=== PATIENT | female | born 1950 | race Asian ===

== ENCOUNTER 2017-07-07 07:10 | Day surgery (SDC) | payer MEDICAID ==
[~2017-07-07] VITALS: Ht 162.6 cm; Wt 63.2 kg
[~2017-07-07 07:10] MED LIST: ACETAMINOPHEN/CODEINE 300-30 MG TABLET PO PRN; TETRACAINE HCL/PF 0.5% 4 ML OPHTHALMIC SOLUTION OS ONE
[2017-07-07] MEDS ORDERED: HYALURONATE SOD/CHONDROITIN SOD 0.5 ML VIAL IO ONE (07:11)
[2017-07-07] MEDS ORDERED: EPINEPHrine 1:1,000 [1 MG/ML] AMP IM ONE (07:11)
[2017-07-07] MEDS ORDERED: MIDAZOLAM HCL 2 MG/2 ML VIAL IVP ONE (07:11)
[2017-07-07] MEDS ORDERED: HYALURONATE SODIUM 12 MG/ML 0.8 ML SYRINGE IO ONE (07:11)
[2017-07-07] MEDS ORDERED: FentaNYL CITRATE-PF 100 MCG/2 ML VIAL IVP ONE (07:11)
[2017-07-07] MEDS ORDERED: BRIMONIDINE TARTRATE 0.15% 5 ML OPHTHALMIC SOLUTION OS ONE (07:11)
[2017-07-07] MEDS ORDERED: TETRACAINE HCL VISCOUS 0.5% 5 ML OPHTHALMIC SOLUTION OD ONE (07:11)
[2017-07-07] MEDS ORDERED: POVIDONE-IODINE 10% 15 ML SOLUTION UD TP ONE (07:11)
[2017-07-07] MEDS ORDERED: LIDOCAINE HCL/PF 1% 2 ML VIAL IM ONE (07:11)
[2017-07-07] MEDS ORDERED: RINGERS SOLUTION,LACTATED 500 ML IV ONE ×2 (07:19→07:30)
[2017-07-07] MEDS ORDERED: CYCLOPENTOLATE HCL 2% 2 ML OPHTHALMIC SOLUTION ONE (07:20)
[2017-07-07] MEDS ORDERED: PHENYLEPHRINE HCL 2.5% 2 ML OPHTHALMIC SOLUTION ONE (07:20)
[2017-07-07] MEDS ORDERED: MOXIFLOXACIN HCL 0.5% 3 ML OPHTHALMIC SOLUTION ONE (07:20)
[2017-07-07] MEDS ORDERED: DICLOFENAC SODIUM 0.1% 2.5 ML OPHTHALMIC SOLUTION ONE (07:20)
[2017-07-07] MEDS ORDERED: TETRACAINE HCL/PF 0.5% 4 ML OPHTHALMIC SOLUTION ONE (07:20)
[2017-07-07] MEDS: PHENYLEPHRINE HCL 2.5% 2 ML OPHTHALMIC SOLUTION OS SCH ×3 (07:53→08:04)
[2017-07-07] MEDS: MOXIFLOXACIN HCL 0.5% 3 ML OPHTHALMIC SOLUTION OS SCH ×3 (07:54→08:16)
[2017-07-07] MEDS: CYCLOPENTOLATE HCL 2% 2 ML OPHTHALMIC SOLUTION OS SCH ×3 (07:54→08:04)
[2017-07-07] MEDS: DICLOFENAC SODIUM 0.1% 2.5 ML OPHTHALMIC SOLUTION OS SCH ×3 (07:54→08:16)
[2017-07-07] MEDS ORDERED: AcetaZOLAMIDE 250 MG TABLET PO ONE (08:15)
[2017-07-07] MEDS ORDERED: AcetaZOLAMIDE 250 MG TABLET ONE (09:59)
== END 2017-07-07 10:30 | disposition home or self-care (01) ==
LOC: SURGERY 07:10
PROVIDERS: ATTEND Ophthalmology
DX: H25.12 Age-related nuclear cataract, left eye (principal); Z98.41 Cataract extraction status, right eye; Z98.890 Other specified postprocedural states
CPT/HCPCS: 66984; 93005; C1780; J0171; J2250; J3010; J3490 ×2; J7120